=== PATIENT | male | born 1980 | race African-American/Black ===

== ENCOUNTER 2016-10-07 21:28 | Emergency (ER) | payer OTHER ==
[~2016-10-07] VITALS: Ht 160 cm; Wt 76.7 kg
--- NOTE | ~2016-10-07 | EKG ---
[place] [address] [facility] [place] [address] ELECTROCARDIOGRAM REPORT Name: SHANNEN PEREZ Room #: DEP NIKKI Peres#: [id number] Admission: 10/07/16 Attend Phys: Discharge: 10/07/16 Date of : 76 Report #: [id number] THIS REPORT FOR: //name// [facility] ED Test Date: 2016-10-07 Test Time: 21:43:12 Pat Name: SHANNEN PEREZ Department: Room: Gender: M [employer] Teacher: [id number] : 1980 Requested By: Trang Cabrera Order Number: [id number] MD: Jonnathan Beavers Measurements Intervals [place] Rate: 91 P: 43 NH: 132 QRS: 37 QRSD: 76 T: 6 QT: 339 QTc: 418 Interpretive Statements Sinus rhythm ST elev, probable normal early repol pattern No previous ECG available for comparison Electronically Signed On 10-09-2016 13:22:56 CDT by Jonnathan Beavers [email or web address] <ELECTRONICALLY SIGNED> By: Jonnathan Beavers MD 10/09/16 1322 2143 2143 Jonnathan Beavers MD /CHARLES
[2016-10-07] MEDS ORDERED: VENTOLIN HFA 1818 GM INH (21:54)
[2016-10-07] MEDS ORDERED: DOXYCYCLINE 10100 MG PO (21:54)
[2016-10-07] MEDS ORDERED: PREDNISONE 20 M20 MG PO (21:54)
[2016-10-07 21:56] LABS: ABSOLUTE NEUTROPHILS 4.6 thou/uL (1.4-8.2); EOSINOPHILS 1.6 % (0.0-3.0); HEMOGLOBIN 15.8 gm/dL (14.0-18.0); LYMPHOCYTES 32.7 % (24.0-44.0); MCH 29.1 pg (26.0-34.0); MCHC 33.5 g/dL (28.0-37.0); MCV 86.9 fL (80.0-100.0); MONOCYTES 10.7 % (1.0-8.0); PLATELET COUNT 294 thou/uL (150-400); RBC 5.41 mil/uL (4.50-6.00); RDW 13.9 % (10.5-14.5); WBC 8.5 thou/uL (4.0-11.0)
[2016-10-07 21:58] LABS: MANUAL DIFF NO
[2016-10-07 22:13] LABS: ALBUMIN 3.8 g/dL (3.4-5.0); ALKALINE PHOSPHATASE 59 U/L (46-116); ANION GAP 13 mmol/L (7-16); BUN 11 mg/dL (7-18); CALCIUM 9.7 mg/dL (8.5-10.1); CHLORIDE 99 mmol/L (98-107); CO2 25 mmol/L (21-32); GLUCOSE 100 mg/dL (70-99); POTASSIUM 4.1 mmol/L (3.5-5.1); SGOT 21 U/L (15-37); SGPT 37 U/L (30-65); SODIUM 137 mmol/L (136-145); TOTAL BILIRUBIN 0.2 mg/dL (<0.1-1.0); TOTAL PROTEIN 8.1 g/dL (6.4-8.2); TROPONIN-I < 0.04 ng/mL (<0.04-0.07)
[2016-10-07 22:36] VITALS: BP 137/98
== END 2016-10-07 22:43 | disposition home or self-care (01) ==
LOC: ER 21:28
PROVIDERS: Emergency Medicine
DX: J20.9 Acute bronchitis, unspecified (principal); R07.89 Other chest pain; R06.00 Dyspnea, unspecified; I10 Essential (primary) hypertension; Z88.6 Allergy status to analgesic agent; Z88.1 Allergy status to other antibiotic agents; F17.210 Nicotine dependence, cigarettes, uncomplicated; F10.99 Alcohol use, unspecified with unspecified alcohol-induced disorder